=== PATIENT | female | born 1985 | race Caucasian/White ===

== ENCOUNTER → 2018-03-18 | Outpatient (CLI) | payer BC, OTHER ==
[~2018-03-18] MED LIST: CHOL10003 PO; HYDR-3240 PO; LEVO125T PO; MONT10TA6 PO; TOPI50TA35 PO; VITA1TAB19 PO
== END | disposition home or self-care (01) ==
LOC: STAR 09:25
PROVIDERS: ATTEND Surgery
DX: Z02.9 Encounter for administrative examinations, unspecified (principal)

== ENCOUNTER 2018-03-25 08:50 | Inpatient (IN) | payer BC, OTHER ==
[~2018-03-25] VITALS: Ht 157.5 cm; Wt 70.2 kg
[~2018-03-25 08:50] MED LIST changes: +BUPIVACAINE/PF-EPI 0.5% 1:200K ONE; -HYDR-3240 PO; -LEVO125T PO
[2018-03-25] MEDS ORDERED: LACTATED RINGERS 1,000 ML IV SCH (09:45)
[2018-03-25] MEDS ORDERED: ONDANSETRON ODT 8 MG PO ONE (10:00)
[2018-03-25] MEDS ORDERED: GABAPENTIN 300 MG CAPSULE PO ONE (10:00)
[2018-03-25] MEDS ORDERED: LIDOCAINE-MPF 1%, 2ML INFIL ONE (10:00)
[2018-03-25] MEDS ORDERED: ACETAMINOPHEN 500 MG TABLET PO ONE (10:00)
[2018-03-25 10:11] LABS: HCG UR SG 1.027 (1.003-1.030)
[2018-03-25] MEDS ORDERED: DEXAMETHASONE 4 MG/ML, 1ML ONE ×2 (10:18)
[2018-03-25] MEDS ORDERED: MIDAZOLAM 1 MG/ML, 2ML ONE (10:18)
[2018-03-25] MEDS ORDERED: PROPOFOL 10 MG/ML, 20ML ONE ×2 (10:18→11:26)
[2018-03-25] MEDS ORDERED: FENTANYL PF 250 MCG/5ML ONE (10:18)
[2018-03-25] MEDS ORDERED: LIDOCAINE-MPF 2% ,5ML ONE (10:19)
[2018-03-25] MEDS ORDERED: ROCURONIUM 10 MG/ML,10ML ONE (11:26)
[2018-03-25] MEDS ORDERED: SUCCINYLCHOLINE 20 MG/ML, 10ML ONE (11:26)
[2018-03-25] MEDS ORDERED: DIAZEPAM 5 MG/ML, 2ML IVPush PRN (12:00)
[2018-03-25] MEDS ORDERED: OXYcodone 5 MG/5 ML ORAL.SOL UDC PO PRN (12:00)
[2018-03-25] MEDS ORDERED: MEPERIDINE/PF 25MG/0.5ML IVPush PRN (12:00)
[2018-03-25] MEDS ORDERED: MIDAZOLAM 1 MG/ML, 2ML IV PRN (12:00)
[2018-03-25] MEDS ORDERED: HYDROmorphone 1 MG/ML, 1ML IV PRN (12:00)
[2018-03-25] MEDS ORDERED: LORazepam 2 MG/ML, 1ML IVPush PRN (12:00)
[2018-03-25] MEDS ORDERED: LABETALOL 5MG/ML, 20ML IV PRN (12:00)
[2018-03-25] MEDS ORDERED: ALBUTEROL SULFATE 2.5 MG/3 ML NPPB PRN (12:00)
[2018-03-25] MEDS ORDERED: MORPHINE SULFATE 4 MG/ML, 1ML IVPush PRN (12:00)
[2018-03-25] MEDS ORDERED: MEPERIDINE/PF 50 MG/ML ONE (12:59)
[2018-03-25] MEDS: FENTANYL PF 100 MCG/2ML IV PRN ×2 (13:13→13:25)
[2018-03-25] MEDS ORDERED: FENTANYL PF 100 MCG/2ML ONE (13:14)
[2018-03-25] MEDS ORDERED: OXYcodone 5 MG/5 ML ORAL.SOL UDC ONE (13:14)
[2018-03-25] MEDS ORDERED: ACETAMINOPHEN 650 MG SUPP PR PRN (14:30)
[2018-03-25] MEDS ORDERED: ACETAMINOPHEN 325 MG TABLET PO PRN (14:30)
[2018-03-25 14:32] VITALS: BP 102/68
[2018-03-25] MEDS ORDERED: hydrALAzine 20 MG/ML, 1ML IV PRN (15:00)
[2018-03-25] MEDS: CALCIUM/VITAMIN D3 250-125 TABLET PO SCH ×2 (15:38→20:47)
[2018-03-25] MEDS: HYDROcodone/APAP 5/325 TABLET PO PRN ×2 (15:38→16:21)
[2018-03-25 15:45] VITALS: BP 105/70
[2018-03-25] MEDS: ONDANSETRON 2MG/ML, 2ML IV PRN (20:47)
[2018-03-25] MEDS: SODIUM CHLORIDE FLUSH 10ML SYR IVF SCH (20:48)
[2018-03-25] MEDS: TOPIRAMATE 25 MG TABLET PO SCH (20:48)
[2018-03-25] MEDS ORDERED: MONTELUKAST 10 MG TABLET PO SCH (21:00)
[2018-03-25 21:17] VITALS: BP 96/64
[2018-03-26] MEDS: HYDROcodone/APAP 5/325 TABLET PO PRN ×3 (00:30→10:01)
[2018-03-26 00:56] VITALS: BP 100/65
[2018-03-26 03:31] VITALS: BP 104/68
[2018-03-26 05:09] LABS: CALCIUM 8.3 mg/dL (8.5-10.1)
[2018-03-26] MEDS ORDERED: LEVOTHYROXINE 125 MCG TABLET PO SCH (06:00)
[2018-03-26 07:10] VITALS: BP 96/62
[2018-03-26] MEDS ORDERED: HYDR-3240 PO (09:20)
[2018-03-26] MEDS ORDERED: LEVO125T PO (09:21)
[2018-03-26] MEDS: SODIUM CHLORIDE FLUSH 10ML SYR IVF SCH (09:30)
[2018-03-26] MEDS ORDERED: ONDANSETRON ODT 4 MG ONE (09:58)
[2018-03-26] MEDS: CALCIUM/VITAMIN D3 250-125 TABLET PO SCH (10:03)
[2018-03-26] MEDS: ONDANSETRON 2MG/ML, 2ML IV PRN (10:03)
[2018-03-26] MEDS: TOPIRAMATE 25 MG TABLET PO SCH (10:04)
== END 2018-03-26 11:01 | disposition home or self-care (01) | DRG 627 ==
LOC: OUT 08:50 → 4NOR 14:00 → OUT 14:49 → DCLOUNGE 03-26 10:44
PROVIDERS: ADMIT Surgery; ATTEND Surgery
PROC: 4A1104G Monitoring of Peripheral Nervous Electrical Activity, Intraoperative, Open Approach (ICD-10-PCS; 2018-03-25)
PROC: 0GTK0ZZ Resection of Thyroid Gland, Open Approach (ICD-10-PCS; principal; 2018-03-25 11:00)
DX: E04.2 Nontoxic multinodular goiter (principal); Z98.891 History of uterine scar from previous surgery; Z88.8 Allergy status to other drugs, medicaments and biological substances; Z88.1 Allergy status to other antibiotic agents; Z91.040 Latex allergy status
CPT/HCPCS: 36415; 81025; 82310; 83970; 88307; G0378; J1100; J2175; J2250; J2405; J2704; J3010; J3490; Q0162; C1760; J0330; J7120